=== PATIENT | male | born 1945 | race Caucasian/White ===

== ENCOUNTER → 2021-01-01 | Outpatient (CLI) | payer MEDICARE ==
[~2021-01-01] MED LIST: ASPIR-LOW81 MG PO; CHLORTHALIDONE25 MG PO; CIALIS5 MG PO; EXCEDRIN MIGRA1 EAC1 PO; FLOMAX 0.4 MG0.4 MG PO; FLOMAX0.4 MG PO; KLOR-CON M2020 MEQ PO; LOVASTATIN40 MG PO; NORCO 7.5-3251 EACH PO; OMEGA 3 FISH O1 EACH PO; PERCOCET 10-321 EACH PO; PROTONIX40 MG PO; TENORMIN 25 MG25 MG PO; THERA-M1 EACH PO; VIT C PO; VITAMIN C 500500 MG PO; ZYRTEC10 MG PO
== END ==
LOC: HEART 5 08:48
DX: R00.2 Palpitations (principal); I10 Essential (primary) hypertension

== ENCOUNTER → 2021-01-23 | Outpatient (CLI) | payer MEDICARE | LOC: HEART 5 08:00 | DX: I10 Essential (primary) hypertension (principal); I47.2 Ventricular tachycardia; R10.12 Left upper quadrant pain; E78.5 Hyperlipidemia, unspecified | CPT/HCPCS: 78452; 93306; A9502; J2785 ==